=== PATIENT | male | born 1935 | race Caucasian/White ===

== ENCOUNTER → 2016-09-26 | Outpatient (REF) | payer MEDICARE ==
[~2016-09-26] MED LIST: ACET650S3 PR; ACET65TA OR; AMLO5TAB PO; ASPI1TAB PO; ASPI81TA83 PO; B COTAB3 PO; CARV12.5 PO; CARV3.12 PO; DULC10SU2 PR; ENEMENE6 PR; FLOM5CAP PO; LISI10TA4 PO; LOVA40TA PO; MILKSUS PO; MULTLIQ PO; OMEP20CA3 PO; PRIL20CA PO; SERO1TAB3 PO; SERT50TA PO; SIMV40TA2 PO; TOPR25TA OR; TYLE325T5 PO; VITA100037 PO; VITMTA PO; XARE10TA PO; cepacol PO
[2016-09-26 08:59] LABS: MEAN CORPUSCULAR HEMOGLOBIN 29.1 pg (27.0-33.0); MEAN CORPUSCULAR HGB CONC 32.4 g/dl (32.0-36.5); MEAN CORPUSCULAR VOLUME 89.7 fl (80.0-96.0); RED CELL DISTRIBUTION WIDTH 14.7 % (11.5-14.5); WHITE BLOOD COUNT 7.9 K/mm3 (4.0-10.0)
[2016-09-26 09:29] LABS: ANION GAP 8 MEQ/L (8-16); BLOOD UREA NITROGEN 21 MG/DL (7-18); CALCIUM LEVEL 8.7 MG/DL (8.8-10.2); CARBON DIOXIDE LEVEL 28 MEQ/L (21-32); CHLORIDE LEVEL 108 MEQ/L (98-107); CREATININE FOR GFR 0.93 MG/DL (0.70-1.30); GLOMERULAR FILTRATION RATE > 60.0 (>35); GLUCOSE, FASTING 150 MG/DL (83-110); SODIUM LEVEL 144 MEQ/L (136-145)
== END ==
LOC: SKLAB8 08:00
PROVIDERS: ATTEND Internal Medicine
DX: E78.5 Hyperlipidemia, unspecified (principal); I10 Essential (primary) hypertension

== ENCOUNTER 2016-10-21 08:31 | Inpatient (IN) | payer MEDICARE ==
[~2016-10-21] VITALS: Ht 182.9 cm; Wt 72.7 kg
[~2016-10-21 08:31] MED LIST changes: -ACET650S3 PR; -ASPI1TAB PO; -B COTAB3 PO; -CARV12.5 PO; -CARV3.12 PO; -DULC10SU2 PR; -ENEMENE6 PR; -FLOM5CAP PO; -LISI10TA4 PO; -LOVA40TA PO; -MILKSUS PO; -MULTLIQ PO; -OMEP20CA3 PO; -SERO1TAB3 PO; -SERT50TA PO; -TYLE325T5 PO; -VITA100037 PO; -VITMTA PO; -XARE10TA PO
[2016-10-21] MEDS ORDERED: NS 500 ML IV ONE (08:45)
[2016-10-21] MEDS ORDERED: LISI10TA4 PO (08:53)
[2016-10-21] MEDS ORDERED: SERO1TAB3 PO (08:53)
[2016-10-21] MEDS ORDERED: FLOM5CAP PO (08:53)
[2016-10-21] MEDS ORDERED: XARE10TA PO (08:53)
[2016-10-21] MEDS ORDERED: LOVA40TA PO (08:53)
[2016-10-21] MEDS ORDERED: SERT50TA PO (08:53)
[2016-10-21] MEDS ORDERED: CARV12.5 PO (08:53)
[2016-10-21] MEDS ORDERED: VITA100037 PO (08:56)
[2016-10-21] MEDS ORDERED: MULTLIQ PO (08:56)
[2016-10-21] MEDS ORDERED: ACET650S3 PR (08:56)
[2016-10-21] MEDS: QUEtiapine FUMARATE 25 MG TAB PO SCH ×2 (09:00→20:37)
[2016-10-21] MEDS: CARVedilol 6.25 MG TAB PO SCH ×2 (09:00→20:39)
--- NOTE | 2016-10-21 09:19 | REP ---
CHEST, SINGLE VIEW: COMPARISON: 06/12/2011. There is no evidence of acute infiltrate. No pleural effusion is seen. The heart is normal in size. The mediastinal silhouette is unremarkable. The visualized osseous structures are intact. IMPRESSION: No acute pulmonary disease. Signed by Michael Joyce MD 10/21/2016 05:10 P
[2016-10-21 09:28] LABS: BASO % 0.6 % (0.0-1.0); EOS # 0.4 K/mm3 (0.0-0.50); EOS % 5.7 % (0.0-3.0); LARGE UNSTAINED CELL # 0.1 K/mm3 (0.0-0.4); LARGE UNSTAINED CELL % 1.2 % (0.0-4.0); LYMPH # 0.8 K/mm3 (1.5-4.5); LYMPH % 11.8 % (24.0-44.0); MEAN CORPUSCULAR HEMOGLOBIN 29.1 pg (27.0-33.0); MEAN CORPUSCULAR HGB CONC 32.7 g/dl (32.0-36.5); MONO # 0.5 K/mm3 (0.0-0.8); MONO % 7.7 % (0.0-5.0); NEUTROPHILS # 4.6 K/mm3 (1.8-7.7); NEUTROPHILS % 72.9 % (36.0-66.0); PLATELET COUNT, AUTOMATED 185 k/mm3 (150-450); RED CELL DISTRIBUTION WIDTH 14.9 % (11.5-14.5); WHITE BLOOD COUNT 6.3 K/mm3 (4.0-10.0)
[2016-10-21 09:30] LABS: ALBUMIN/GLOBULIN RATIO 0.91 (1.00-1.93); ALKALINE PHOSPHATASE 127 U/L (45-117); ALT/SGPT 22 U/L (12-78); ANION GAP 7 MEQ/L (8-16); AST/SGOT 18 U/L (15-37); BILIRUBIN,DIRECT 0.1 MG/DL (0.0-0.2); BILIRUBIN,TOTAL 0.3 MG/DL (0.2-1.0); BLOOD UREA NITROGEN 29 MG/DL (7-18); CALCIUM LEVEL 9.2 MG/DL (8.8-10.2); CARBON DIOXIDE LEVEL 28 MEQ/L (21-32); CHLORIDE LEVEL 108 MEQ/L (98-107); CREATININE FOR GFR 1.29 MG/DL (0.70-1.30); GLOMERULAR FILTRATION RATE 56.8 (>35); GLUCOSE, FASTING 101 MG/DL (83-110); POTASSIUM SERUM 4.5 MEQ/L (3.5-5.1); SODIUM LEVEL 143 MEQ/L (136-145); TOTAL PROTEIN 6.3 GM/DL (6.4-8.2)
[2016-10-21 09:34] LABS: INR 1.5
--- NOTE | 2016-10-21 09:49 | REP ---
CT HEAD WITHOUT CONTRAST: HISTORY: Altered mental status. COMPARISON: 06/13/2011. Areas of decreased attenuation are present in the periventricular white matter. This represents small vessel ischemic disease. There is no intraparenchymal hemorrhage, mass or midline shift. The ventricular system and cortical sulci as well as subarachnoid space in the posterior fossa are dilated consistent with moderate volume loss. There is no extracerebral collection. The visualized sinuses are clear. IMPRESSION: 1. Small vessel ischemic disease. 2. Moderate volume loss. Signed by Toyb Pop MD 10/21/2016 09:50 A
[2016-10-21] MEDS ORDERED: DULC10SU2 PR (10:54)
[2016-10-21] MEDS ORDERED: OMEP20CA3 PO (10:54)
[2016-10-21] MEDS ORDERED: ENEMENE6 PR (10:54)
[2016-10-21] MEDS ORDERED: ASPI1TAB PO (10:55)
[2016-10-21] MEDS ORDERED: TYLE325T5 PO (10:55)
[2016-10-21] MEDS ORDERED: VITMTA PO (10:55)
[2016-10-21] MEDS ORDERED: MILKSUS PO (10:55)
[2016-10-21] MEDS ORDERED: B COTAB3 PO (10:55)
[2016-10-21] MEDS ORDERED: NS 1,000 ML IV SCH (12:24)
[2016-10-21] MEDS ORDERED: ACETAMINOPHEN TAB 650MG DOSE (2X325MG) PO PRN (12:30)
[2016-10-21] MEDS ORDERED: FLEET ENEMA PR PRN (12:30)
[2016-10-21] MEDS ORDERED: MOM 30ML SUSPENSION UDC PO PRN (12:30)
[2016-10-21] MEDS ORDERED: BISACODYL 10 MG SUPP PR PRN (12:30)
[2016-10-21] MEDS ORDERED: ACETAMINOPHEN 650 MG SUPP PR PRN (12:30)
--- NOTE | 2016-10-21 13:21 | HPE ---
DATE OF ADMISSION: 10/21/2016 PRIMARY CARE PROVIDER: Dr. Adorno CHIEF COMPLAINT: Syncope. HISTORY OF PRESENT ILLNESS: The patient is an 81-year-old man who presented from [facility] facility where he reportedly was found slumped over and drooling and unresponsive with a blood pressure in the 80s. He was taken back to his room and laid supine in his bed and improved rather quickly; however, had a repeat bout of blood pressure in the 80s and decreased level of responsiveness. As per the patient's , who is bedside in the emergency room, the patient had garbled speech yesterday and was not himself; however, at the present time, the patient's states that he is presently back to his baseline. His speech is at his baseline. The patient himself denies any pain. He is oriented to person and place but not to situation. The patient has baseline dementia and this is not any different from his baseline, as per the patient's and daughter, who are in the emergency room. PAST MEDICAL HISTORY: 1. Atrial fibrillation, followed by Dr. Alba. 2. Coronary artery disease. 3. Hypertension. 4. Dementia. 5. Dyslipidemia. 6. Gastroesophageal reflux disease (GERD). 7. Benign prostatic hypertrophy (BPH) with a history of prostate cancer. ALLERGIES: BEE VENOM. PAST SURGICAL HISTORY: 1. Left hemiarthroplasty on 09/18/2016. 2. Abdominal aortic aneurysm repair. 3. Appendectomy. SOCIAL HISTORY: He is a senior care resident. He is DO NOT RESUSCITATE. He is not a smoker. No alcohol or illicit drug use. His is healthcare proxy. FAMILY HISTORY: Noncontributory. REVIEW OF SYSTEMS: Negative other than for history of present illness. PHYSICAL EXAMINATION VITAL SIGNS: Temperature 97.2, pulse 59, respiratory rate 16, blood pressure 126/58, oxygen saturation 100% on room air. GENERAL: He is a very frail, elderly, male who appears older than his stated age. He is lying at a 32 degree angle on a stretcher. He is sleeping peacefully. He does not appear to be in any acute distress whatsoever. HEENT: Bitemporal wasting. His eyes are firmly closed shut. He has no teeth. He has very dry mucous membranes. No elevation in central venous pressure. CARDIOVASCULAR EXAMINATION: S1, S2. He is bradycardic without additional heart sounds appreciated. RESPIRATORY EXAMINATION: Fairly clear. ABDOMINAL EXAMINATION: Bowel sounds are present. The abdomen is soft. Nontender to palpation. EXTREMITIES: No clubbing, cyanosis or edema. LABORATORY DATA: WBC 6.3, hemoglobin 11.4, hematocrit 34.8, platelet count 185. Chemistry panel: Sodium 143, potassium 4.5, chloride 108, bicarbonate 28, BUN 29, creatinine 1.2, lactic acid 1.9, alkaline phosphatase slightly elevated at 127. One set of cardiac enzymes is negative. TSH within normal limits. INR is 1.5. UA is essentially unremarkable. MICROBIOLOGY: Blood cultures and urine cultures have been drawn. IMAGING: The patient did have a chest x-ray completed, which reveals no acute pulmonary disease. He also had a CT scan of the head, which revealed small vessel ischemic disease and moderate volume loss. ASSESSMENT AND PLAN: This is an 81-year-old man status post syncopal episode with some garbled speech yesterday. 1. Syncopal episode and garbled speech. At the present time, the patient appears to be dehydrated. He is on Lisinopril, as well as Coreg. He is bradycardic and in sinus sarah rhythm. I do have concern that he may be dehydrated secondary to advanced dementia and medication adverse effect, secondary to Lisinopril and carvedilol. At this time, I will gently hydrate him with normal saline. I will hold Lisinopril and decrease his Coreg and place holding parameters on it. I will request recent records from Dr. Alba's office, as well as a recent echocardiogram. He will be admitted to telemetry. We will trend his cardiac enzymes. We will continue to check neuro checks. Given that he did have garbled speech, there is also initial concern for CVA at the outside facility. I will check a MRI of the brain. We will also check orthostatics. Plan of care and all questions were discussed with the patient's family, who are at bedside, and all questions answered to their satisfaction. I did confirm code status. We will sign his Medical Orders for Life Sustaining Treatment (MOLST) form, which he did come to the hospital with for DO NOT RESUSCITATE. 2. Coronary artery disease. The patient is on aspirin, statin and beta lydia. We will obtain records from Dr. Alba's office. 3. Gastroesophageal reflux disease (GERD). Continue with omeprazole. 4. Depression. Continue with Seroquel and sertraline. 5. Atrial fibrillation. As outlined above, we will titrate down his Coreg and we will be monitoring him on telemetry. We will continue him on Xarelto. CT did not reveal any evidence of intracranial hemorrhage. 6. Benign prostatic hypertrophy (BPH). Continue with Flomax. 7. Hypertension. As outlined above. 8. Deep vein thrombosis (DVT) prophylaxis. The patient is on Xarelto. DISPOSITION: The patient is admitted to the progressive care unit (PCU). Physical therapy (PT) and occupational therapy (OT) will be consulted as he did have a syncopal episode.
[2016-10-21 16:57] VITALS: BP 145/72
[2016-10-21] MEDS: VITAMIN D 1,000 INTERNATIONAL UNITS TABLET PO SCH (17:46)
[2016-10-21] MEDS: ASPIRIN 81 MG ENTERIC TAB PO SCH (17:46)
[2016-10-21] MEDS: MULTIVITAMINS/MINERALS THERAP 1 TAB PO SCH (17:47)
[2016-10-21] MEDS: SERTRALINE HCL 50 MG TAB PO SCH (17:47)
[2016-10-21] MEDS ORDERED: SLF 3 ML SYR IV PRN (18:00)
--- NOTE | 2016-10-21 18:14 | ECGEPIP ---
Stationary ECG Study [facility] - ED Test Date: 2016-10-21 Pat Name: NHAN COULTER Department: Room: - Gender: M Media Sales Consultant: jodie : 1935 Requested By: Bella Cary Order Number: [id number] Reading MD: Bon Duque Measurements Intervals [place] Rate: 56 P: 38 OK: 209 QRS: -37 QRSD: 117 T: 1 QT: 438 QTc: 423 Interpretive Statements SINUS BRADYCARDIA LEFT AXIS DEVIATION LOW QRS VOLTAGE MODERATE INTRAVENTRICULAR CONDUCTION DELAY Electronically Signed On 10-21-2016 18:14:03 EDT by Bon Duque
[2016-10-21 19:37] VITALS: BP 160/80
[2016-10-21] MEDS: SIMVASTATIN 40 MG TAB PO SCH (20:36)
[2016-10-21] MEDS: OMEPRAZOLE 20 MG CAP PO SCH (20:36)
[2016-10-21] MEDS: RIVAROXABAN 10 MG TAB (XARELTO) PO SCH (20:37)
[2016-10-21] MEDS: TAMSULOSIN 0.4 MG CAP PO SCH (20:40)
[2016-10-21] MEDS: SLF 3 ML SYR IV SCH (22:00)
[2016-10-22] VITALS (9 sets, daily range): BP systolic 85–138; BP diastolic 56–78
[2016-10-22 05:11] LABS: MEAN CORPUSCULAR HEMOGLOBIN 29.3 pg (27.0-33.0); MEAN CORPUSCULAR HGB CONC 32.9 g/dl (32.0-36.5); MEAN CORPUSCULAR VOLUME 89.1 fl (80.0-96.0); RED CELL DISTRIBUTION WIDTH 14.8 % (11.5-14.5); WHITE BLOOD COUNT 6.5 K/mm3 (4.0-10.0)
[2016-10-22 05:34] LABS: ANION GAP 6 MEQ/L (8-16); BLOOD UREA NITROGEN 25 MG/DL (7-18); CALCIUM LEVEL 8.6 MG/DL (8.8-10.2); CARBON DIOXIDE LEVEL 29 MEQ/L (21-32); CHLORIDE LEVEL 107 MEQ/L (98-107); CREATININE FOR GFR 1.13 MG/DL (0.70-1.30); GLOMERULAR FILTRATION RATE > 60.0 (>35); GLUCOSE, FASTING 102 MG/DL (83-110); POTASSIUM SERUM 3.8 MEQ/L (3.5-5.1); SODIUM LEVEL 142 MEQ/L (136-145)
[2016-10-22] MEDS: SLF 3 ML SYR IV SCH ×3 (05:47→21:50)
[2016-10-22] MEDS: QUEtiapine FUMARATE 25 MG TAB PO SCH ×2 (08:55→21:50)
[2016-10-22] MEDS: MULTIVITAMINS/MINERALS THERAP 1 TAB PO SCH (08:55)
[2016-10-22] MEDS: SERTRALINE HCL 50 MG TAB PO SCH (08:55)
[2016-10-22] MEDS: ASPIRIN 81 MG ENTERIC TAB PO SCH (08:55)
[2016-10-22] MEDS: VITAMIN D 1,000 INTERNATIONAL UNITS TABLET PO SCH (08:55)
[2016-10-22] MEDS: CARVedilol 6.25 MG TAB PO SCH (09:00)
[2016-10-22] MEDS ORDERED: NS 1,000 ML IV SCH (12:45)
--- NOTE | 2016-10-22 14:55 | IPN ---
DATE: 10/22/2016 SUBJECTIVE: Today, the patient reports that he is feeling better. He does not remember the events of yesterday. He denies any chest pain, shortness of breath, fevers, chills, nausea, or vomiting at this time. The patient's and daughter are at bedside and they report that he is doing significantly better than he was yesterday. He is more awake, more alert and conversant. OBJECTIVE: VITAL SIGNS: Temperature 98.5, pulse 73, respiratory rate 20, blood pressure 126/57, oxygen saturation 97% on room air. Orthostatics were checked and while laying supine, he was 115/56 with a pulse of 75 and while standing, he was 85/58 with a pulse of 67. GENERAL: He is a frail, elderly, man sitting up in bed, watching television in no distress. NEUROLOGIC: Cranial nerves II-XII are grossly intact. HEENT: He still has dry mucous membranes. No elevation of central venous pressure (CVP). CARDIOVASCULAR: S1, S2. He is not bradycardic. RESPIRATORY: Fairly clear. ABDOMEN: Bowel sounds are present. The abdomen is soft. EXTREMITIES: No clubbing, cyanosis, or edema. LABORATORY STUDIES: WBC 6.5, hemoglobin 10.6, hematocrit 32.2, platelet count 181. Chemistry panel: Sodium 142, potassium 3.8, chloride 107, bicarbonate 29, BUN 25, creatinine 1.1. Three sets of cardiac enzymes are negative. MICROBIOLOGY: Blood cultures are negative after 24 hours. Urine culture is negative. IMAGING STUDIES: The patient had an MRI of the brain which we are currently waiting for the results. ASSESSMENT AND PLAN: This is an 81-year-old man status post a syncopal episode. PROBLEM LIST: 1. Syncopal episode, likely secondary to dehydration and medication adverse effect. The patient had been on lisinopril and Coreg. He was in a sinus bradycardia when he presented and he was orthostatic. At this time, we have discontinued his lisinopril and cut his Coreg by 75% and placed holding parameters on it. We are providing him with normal saline. He does appear to be improving quite well. I am less concerned for a cerebrovascular accident (CVA). We are awaiting the results of his MRI. I suspect he will be able to return back to his [facility] facility as early as tomorrow. He is a DO NOT RESUSCITATE (DNR). 2. Coronary artery disease. He is on aspirin, statin, and beta lydia. 3. Gastroesophageal reflux disease. He is on omeprazole. 4. Depression. He is on Seroquel and sertraline. 5. Atrial fibrillation. He is rate controlled with Coreg. He is anticoagulated with Xarelto. 6. Benign prostatic hypertrophy (BPH). He is on Flomax. 7. Hypertension, as outlined above. 8. Deep vein thrombosis (DVT) prophylaxis. He is on Xarelto. DISPOSITION: Provided he remains stable and is no longer orthostatic, he can likely return back to his [facility] facility as early as tomorrow.
[2016-10-22] MEDS: RIVAROXABAN 10 MG TAB (XARELTO) PO SCH (18:45)
[2016-10-22] MEDS: TAMSULOSIN 0.4 MG CAP PO SCH (21:50)
[2016-10-22] MEDS: OMEPRAZOLE 20 MG CAP PO SCH (21:50)
[2016-10-22] MEDS: CARVedilol 3.125 MG TAB PO SCH (21:50)
[2016-10-22] MEDS: SIMVASTATIN 40 MG TAB PO SCH (21:50)
[2016-10-23] VITALS: BP 150/67
[2016-10-23 04:00] VITALS: BP 143/74
[2016-10-23 05:37] LABS: MEAN CORPUSCULAR HEMOGLOBIN 29.6 pg (27.0-33.0); MEAN CORPUSCULAR HGB CONC 32.8 g/dl (32.0-36.5); RED CELL DISTRIBUTION WIDTH 14.8 % (11.5-14.5); WHITE BLOOD COUNT 6.7 K/mm3 (4.0-10.0)
[2016-10-23] MEDS: SLF 3 ML SYR IV SCH (05:51)
[2016-10-23 05:59] LABS: ANION GAP 5 MEQ/L (8-16); BLOOD UREA NITROGEN 23 MG/DL (7-18); CARBON DIOXIDE LEVEL 28 MEQ/L (21-32); CHLORIDE LEVEL 108 MEQ/L (98-107); CREATININE FOR GFR 1.05 MG/DL (0.70-1.30); GLOMERULAR FILTRATION RATE > 60.0 (>35); GLUCOSE, FASTING 101 MG/DL (83-110); POTASSIUM SERUM 4.4 MEQ/L (3.5-5.1); SODIUM LEVEL 141 MEQ/L (136-145)
[2016-10-23 08:00] VITALS: BP 142/72
[2016-10-23] MEDS ORDERED: CARV3.12 PO (08:23)
[2016-10-23 09:24] VITALS: BP 110/64
[2016-10-23] MEDS: SERTRALINE HCL 50 MG TAB PO SCH (09:24)
[2016-10-23] MEDS: MULTIVITAMINS/MINERALS THERAP 1 TAB PO SCH (09:24)
[2016-10-23] MEDS: ASPIRIN 81 MG ENTERIC TAB PO SCH (09:24)
[2016-10-23] MEDS: CARVedilol 3.125 MG TAB PO SCH (09:24)
[2016-10-23] MEDS: QUEtiapine FUMARATE 25 MG TAB PO SCH (09:24)
[2016-10-23] MEDS: VITAMIN D 1,000 INTERNATIONAL UNITS TABLET PO SCH (09:24)
--- NOTE | 2016-10-23 13:38 | REP ---
MR BRAIN WITHOUT CONTRAST: HISTORY: Syncope. COMPARISON: CT 10/21/2016. Areas of decreased attenuation are present in the periventricular and subcortical white matter. This represents small vessel ischemic disease. There is no intraparenchymal hemorrhage, infarct, mass, or midline shift. The ventricular system and cortical sulci as well as subarachnoid space in the posterior fossa are dilated consistent with moderate volume loss. There is no extracerebral collection. The sinuses are clear. IMPRESSION: 1. Small vessel ischemic disease. 2. Moderate volume loss. Signed by Toby Pop MD 10/23/2016 01:39 P
--- NOTE | 2016-10-24 20:56 | DSES ---
DATE OF ADMISSION: 10/21/2016 DATE OF DISCHARGE: 10/23/2016 DISCHARGE DIAGNOSIS: Orthostatic hypotension. SECONDARY DIAGNOSES: 1. Medication adverse effect. 2. Dehydration. 3. Coronary artery disease. 4. Gastroesophageal reflux disease. 5. Depression. 6. Atrial fibrillation. 7. Benign prostatic hypertrophy (BPH). 8. Hypertension. 9. Dementia 10. Atrial fibrillation. HOSPITAL COURSE: The patient is an 81-year-old man who lives in a nursing home facility. He is a DO NOT RESUSCITATE with dementia, who had reportedly not been himself. [facility] and was [facility] to the emergency room for evaluation. He was found to be hypotensive, orthostatic, bradycardiac and dehydrated. He was admitted to the intensive care unit. His antihypertensives were titrated down. He was provided with normal saline. Symptoms did gradually improve and resolve to the point that he was back to his baseline as per his family. SUBJECTIVE: The patient denies any complaints. OBJECTIVE: VITAL SIGNS: Temperature 98.6, pulse 68, respiratory rate 18, blood pressure (BP) 142/72, oxygen saturation 98% on room air. GENERAL: He is a frail, elderly man sitting up in bed. He is easily arousable to verbal stimuli. He is in no distress. HEENT: Cranial nerves II/XII are grossly intact. He has moist mucous membranes. No elevation of central venous pressure (CVP) . CARDIOVASCULAR: S1, S2. Irregularly irregular. RESPIRATORY EXAM: Clear. ABDOMINAL EXAM: Benign. EXTREMITIES: No clubbing, cyanosis or edema. LABORATORY STUDIES: White blood count (WBC) is 6.7, hemoglobin 11.1, platelet count 197. Chemistry panel: Sodium 141, potassium 4.4, chloride 108, bicarbonate 28, BUN 23, creatine 1.0. Three sets of cardiac enzymes are negative. Microbiology and blood cultures were negative. IMAGING: The patient did have Magnetic Resonance Imaging (MRI) of the brain, did not reveal any gross abnormalities. ASSESSMENT AND PLAN: This is an 81-year-old man status post syncopal episodes secondary to orthostatic hypotension. PROBLEMS: 1. Syncopal episode secondary to orthostatic hypotension. Magnetic Resonance Imaging (MRI) was not revealing for gross abnormality. Report is currently pending. The patient's symptoms have resolved. We have discontinued his lisinopril and cut his Coreg by 75% and place holding parameters on it. He did receive normal saline and he appears to be back at his baseline. I am less concern for a cerebrovascular accident (CVA). He is able to return to nursing home today. 2. Coronary artery disease. He is on aspirin, statin and a beta lydia. 3. Gastroesophageal reflux disease. He is on omeprazole. 4. Depression. He is Seroquel and sertraline. 5. Atrial fibrillation. He is rate controlled with Coreg and anticoagulated with Xarelto. 6. Benign prostatic hypertrophy (BPH). He is on Flomax. 7. Hypertension. 8. Deep vein thrombosis (DVT) prophylaxis. He is on Xarelto. DISPOSITION: The patient is returning to his nursing home facility at [facility]. He is to followup with his primary care physician within seven days, along with his 911 telecommunicator within two weeks. Activity and diet as prior to admission. He is to return to the office if symptoms worsen. MEDICATIONS AT THE TIME OF DISCHARGE: - Coreg 3.125 mg by mouth twice a day - acetaminophen 650 mg every 4 hours as needed for pain or fever - aspirin 81 mg daily - vitamin B complex one tablet daily - Dulcolax 10 mg daily as needed for constipation - enema daily as needed for constipation. - lovastatin 40 mg at bedtime (q.h.s.) - milk of magnesia 30 mL daily as needed for constipation - multivitamin one tablet daily - omeprazole 20 mg every evening - Seroquel 25 mg twice a day - Xarelto 10 mg every evening - sertraline 50 mg daily - Flomax 0.4 mg every evening - vitamin D 1000 units daily Greater than 30 minutes organizing disposition.
== END 2016-10-23 11:06 | DRG 641 ==
LOC: M ED 09:11 → M ED INP 12:24 → M PCU 16:42
PROVIDERS: ADMIT Internal Medicine; ATTEND Internal Medicine
DX: E86.0 Dehydration (principal); I48.91 Unspecified atrial fibrillation; I95.1 Orthostatic hypotension; I25.10 Atherosclerotic heart disease of native coronary artery without angina pectoris; I10 Essential (primary) hypertension; F03.90 Unspecified dementia, unspecified severity, without behavioral disturbance, psychotic disturbance, mood disturbance, and anxiety; E78.5 Hyperlipidemia, unspecified; K21.9 Gastro-esophageal reflux disease without esophagitis; N40.0 Benign prostatic hyperplasia without lower urinary tract symptoms; Z85.46 Personal history of malignant neoplasm of prostate; Z66 Do not resuscitate; T46.5X5A Adverse effect of other antihypertensive drugs, initial encounter; T44.6X5A Adverse effect of alpha-adrenoreceptor antagonists, initial encounter; F32.9 Major depressive disorder, single episode, unspecified; Z79.01 Long term (current) use of anticoagulants; Z79.82 Long term (current) use of aspirin; Z79.899 Other long term (current) drug therapy

== ENCOUNTER → 2016-10-24 | Outpatient (REF) | payer MEDICARE ==
[~2016-10-24] MED LIST changes: +ACET650S3 PR; +ASPI1TAB PO; +B COTAB3 PO; +CARV12.5 PO; +CARV3.12 PO; +DULC10SU2 PR; +ENEMENE6 PR; +FLOM5CAP PO; +LISI10TA4 PO; +LOVA40TA PO; +MILKSUS PO; +MULTLIQ PO; +OMEP20CA3 PO; +SERO1TAB3 PO; +SERT50TA PO; +TYLE325T5 PO; +VITA100067 PO; +VITMTA PO; +XARE10TA PO
[2016-10-24 10:31] LABS: MEAN CORPUSCULAR HEMOGLOBIN 28.6 pg (27.0-33.0); MEAN CORPUSCULAR HGB CONC 31.6 g/dl (32.0-36.5); MEAN CORPUSCULAR VOLUME 90.4 fl (80.0-96.0); RED CELL DISTRIBUTION WIDTH 14.7 % (11.5-14.5); WHITE BLOOD COUNT 7.3 K/mm3 (4.0-10.0)
[2016-10-24 10:34] LABS: ANION GAP 9 MEQ/L (8-16); BLOOD UREA NITROGEN 19 MG/DL (7-18); CALCIUM LEVEL 9.6 MG/DL (8.8-10.2); CARBON DIOXIDE LEVEL 23 MEQ/L (21-32); CHLORIDE LEVEL 107 MEQ/L (98-107); CREATININE FOR GFR 1.11 MG/DL (0.70-1.30); GLOMERULAR FILTRATION RATE > 60.0 (>35); GLUCOSE, FASTING 137 MG/DL (83-110); POTASSIUM SERUM 4.1 MEQ/L (3.5-5.1); SODIUM LEVEL 139 MEQ/L (136-145)
== END ==
LOC: SKLAB8 07:00
PROVIDERS: ATTEND Internal Medicine
DX: I10 Essential (primary) hypertension (principal)

== ENCOUNTER → 2016-11-04 | Outpatient (REF) | payer MEDICARE ==
[2016-11-04 09:44] LABS: MEAN CORPUSCULAR HEMOGLOBIN 28.6 pg (27.0-33.0); MEAN CORPUSCULAR HGB CONC 31.6 g/dl (32.0-36.5); MEAN CORPUSCULAR VOLUME 90.6 fl (80.0-96.0); RED CELL DISTRIBUTION WIDTH 14.9 % (11.5-14.5); WHITE BLOOD COUNT 8.5 K/mm3 (4.0-10.0)
[2016-11-04 09:46] LABS: ANION GAP 8 MEQ/L (8-16); BLOOD UREA NITROGEN 18 MG/DL (7-18); CALCIUM LEVEL 9.2 MG/DL (8.8-10.2); CARBON DIOXIDE LEVEL 27 MEQ/L (21-32); CHLORIDE LEVEL 108 MEQ/L (98-107); CREATININE FOR GFR 1.11 MG/DL (0.70-1.30); GLOMERULAR FILTRATION RATE > 60.0 (>35); GLUCOSE, FASTING 148 MG/DL (83-110); POTASSIUM SERUM 3.8 MEQ/L (3.5-5.1); SODIUM LEVEL 143 MEQ/L (136-145)
== END ==
LOC: SKLAB8 08:00
PROVIDERS: ATTEND Internal Medicine
DX: Z51.81 Encounter for therapeutic drug level monitoring (principal); Z79.01 Long term (current) use of anticoagulants; I10 Essential (primary) hypertension

== ENCOUNTER → 2016-12-16 | Outpatient (REF) | payer MEDICARE ==
[2016-12-16 08:39] LABS: BASO % 0.5 % (0.0-1.0); EOS # 0.3 K/mm3 (0.0-0.50); LARGE UNSTAINED CELL # 0.1 K/mm3 (0.0-0.4); LARGE UNSTAINED CELL % 1.9 % (0.0-4.0); LYMPH # 0.8 K/mm3 (1.5-4.5); LYMPH % 12.7 % (24.0-44.0); MEAN CORPUSCULAR HEMOGLOBIN 27.8 pg (27.0-33.0); MEAN CORPUSCULAR HGB CONC 32.3 g/dl (32.0-36.5); MEAN CORPUSCULAR VOLUME 86.1 fl (80.0-96.0); MONO # 0.4 K/mm3 (0.0-0.8); MONO % 6.5 % (0.0-5.0); NEUTROPHILS % 72.5 % (36.0-66.0); PLATELET COUNT, AUTOMATED 229 k/mm3 (150-450); RED CELL DISTRIBUTION WIDTH 14.9 % (11.5-14.5); WHITE BLOOD COUNT 5.6 K/mm3 (4.0-10.0)
[2016-12-16 09:14] LABS: ANION GAP 11 MEQ/L (8-16); BLOOD UREA NITROGEN 18 MG/DL (7-18); CARBON DIOXIDE LEVEL 27 MEQ/L (21-32); CHLORIDE LEVEL 107 MEQ/L (98-107); CREATININE FOR GFR 1.18 MG/DL (0.70-1.30); GLOMERULAR FILTRATION RATE > 60.0 (>35); GLUCOSE, FASTING 149 MG/DL (83-110); SODIUM LEVEL 145 MEQ/L (136-145)
== END ==
LOC: SKLAB8 07:00
PROVIDERS: ATTEND Internal Medicine
DX: F03.91 Unspecified dementia, unspecified severity, with behavioral disturbance (principal)

== ENCOUNTER → 2016-12-26 | Outpatient (REF) | payer MEDICARE ==
[2016-12-26 09:30] LABS: ANION GAP 11 MEQ/L (8-16); BLOOD UREA NITROGEN 22 MG/DL (7-18); CALCIUM LEVEL 9.3 MG/DL (8.8-10.2); CARBON DIOXIDE LEVEL 27 MEQ/L (21-32); CHLORIDE LEVEL 108 MEQ/L (98-107); CREATININE FOR GFR 1.08 MG/DL (0.70-1.30); GLOMERULAR FILTRATION RATE > 60.0 (>35); GLUCOSE, FASTING 103 MG/DL (83-110); POTASSIUM SERUM 4.4 MEQ/L (3.5-5.1); SODIUM LEVEL 146 MEQ/L (136-145)
[2016-12-26 09:36] LABS: MEAN CORPUSCULAR HEMOGLOBIN 27.7 pg (27.0-33.0); MEAN CORPUSCULAR HGB CONC 32.2 g/dl (32.0-36.5); MEAN CORPUSCULAR VOLUME 86.1 fl (80.0-96.0); RED CELL DISTRIBUTION WIDTH 14.9 % (11.5-14.5); WHITE BLOOD COUNT 6.4 K/mm3 (4.0-10.0)
== END ==
LOC: SKLAB8 07:00
PROVIDERS: ATTEND Internal Medicine
DX: Z51.81 Encounter for therapeutic drug level monitoring (principal); Z79.01 Long term (current) use of anticoagulants; I10 Essential (primary) hypertension

== ENCOUNTER → 2017-01-20 | Outpatient (REF) | payer MEDICARE ==
[2017-01-20 09:09] LABS: MEAN CORPUSCULAR HEMOGLOBIN 27.7 pg (27.0-33.0); MEAN CORPUSCULAR HGB CONC 32.2 g/dl (32.0-36.5); RED CELL DISTRIBUTION WIDTH 15.3 % (11.5-14.5); WHITE BLOOD COUNT 6.2 K/mm3 (4.0-10.0)
[2017-01-20 09:44] LABS: ANION GAP 9 MEQ/L (8-16); BLOOD UREA NITROGEN 21 MG/DL (7-18); CALCIUM LEVEL 9.3 MG/DL (8.8-10.2); CARBON DIOXIDE LEVEL 28 MEQ/L (21-32); CHLORIDE LEVEL 106 MEQ/L (98-107); CREATININE FOR GFR 1.11 MG/DL (0.70-1.30); GLOMERULAR FILTRATION RATE > 60.0 (>35); GLUCOSE, FASTING 139 MG/DL (83-110); POTASSIUM SERUM 4.1 MEQ/L (3.5-5.1); SODIUM LEVEL 143 MEQ/L (136-145)
== END ==
LOC: SKLAB8 08:00
PROVIDERS: ATTEND Nurse Practitioner Adult Health
DX: Z51.81 Encounter for therapeutic drug level monitoring (principal); Z79.01 Long term (current) use of anticoagulants; I10 Essential (primary) hypertension

== ENCOUNTER → 2017-01-30 | Outpatient (REF) | payer MEDICARE ==
[2017-01-30 09:26] LABS: MEAN CORPUSCULAR HEMOGLOBIN 28.2 pg (27.0-33.0); MEAN CORPUSCULAR HGB CONC 33.1 g/dl (32.0-36.5); MEAN CORPUSCULAR VOLUME 85.1 fl (80.0-96.0); RED CELL DISTRIBUTION WIDTH 15.4 % (11.5-14.5); WHITE BLOOD COUNT 7.5 K/mm3 (4.0-10.0)
[2017-01-30 09:29] LABS: ANION GAP 8 MEQ/L (8-16); BLOOD UREA NITROGEN 19 MG/DL (7-18); CALCIUM LEVEL 9.5 MG/DL (8.8-10.2); CARBON DIOXIDE LEVEL 29 MEQ/L (21-32); CHLORIDE LEVEL 108 MEQ/L (98-107); CREATININE FOR GFR 1.08 MG/DL (0.70-1.30); GLOMERULAR FILTRATION RATE > 60.0 (>35); GLUCOSE, FASTING 128 MG/DL (83-110); POTASSIUM SERUM 4.2 MEQ/L (3.5-5.1); SODIUM LEVEL 145 MEQ/L (136-145)
== END ==
LOC: SKLAB8 07:00
PROVIDERS: ATTEND Internal Medicine
DX: I48.91 Unspecified atrial fibrillation (principal); Z79.01 Long term (current) use of anticoagulants; F03.90 Unspecified dementia, unspecified severity, without behavioral disturbance, psychotic disturbance, mood disturbance, and anxiety; E11.9 Type 2 diabetes mellitus without complications

== ENCOUNTER → 2017-02-27 | Outpatient (REF) | payer MEDICARE ==
[2017-02-27 09:30] LABS: MEAN CORPUSCULAR HEMOGLOBIN 26.6 pg (27.0-33.0); MEAN CORPUSCULAR HGB CONC 31.2 g/dl (32.0-36.5); MEAN CORPUSCULAR VOLUME 85.5 fl (80.0-96.0); RED CELL DISTRIBUTION WIDTH 16.4 % (11.5-14.5); WHITE BLOOD COUNT 7.4 10^3/uL (4.0-10.0)
[2017-02-27 10:04] LABS: ANION GAP 7 MEQ/L (8-16); BLOOD UREA NITROGEN 17 MG/DL (7-18); CALCIUM LEVEL 9.3 MG/DL (8.8-10.2); CARBON DIOXIDE LEVEL 29 MEQ/L (21-32); CHLORIDE LEVEL 106 MEQ/L (98-107); CREATININE FOR GFR 1.02 MG/DL (0.70-1.30); GLOMERULAR FILTRATION RATE > 60.0 (>35); GLUCOSE, FASTING 105 MG/DL (83-110); POTASSIUM SERUM 4.2 MEQ/L (3.5-5.1); SODIUM LEVEL 142 MEQ/L (136-145)
== END ==
LOC: SKLAB8 02-28 07:00
PROVIDERS: ATTEND Internal Medicine
DX: I48.91 Unspecified atrial fibrillation (principal); Z79.01 Long term (current) use of anticoagulants; F03.90 Unspecified dementia, unspecified severity, without behavioral disturbance, psychotic disturbance, mood disturbance, and anxiety; E11.9 Type 2 diabetes mellitus without complications

== ENCOUNTER → 2017-03-27 | Outpatient (REF) | payer MEDICARE ==
[2017-03-27 08:53] LABS: MEAN CORPUSCULAR HEMOGLOBIN 27.1 pg (27.0-33.0); MEAN CORPUSCULAR HGB CONC 31.4 g/dl (32.0-36.5); MEAN CORPUSCULAR VOLUME 86.1 fl (80.0-96.0); PLATELET COUNT, AUTOMATED 283 10^3/uL (150-450); RED CELL DISTRIBUTION WIDTH 16.1 % (11.5-14.5); WHITE BLOOD COUNT 9.3 10^3/uL (4.0-10.0)
[2017-03-27 09:41] LABS: ANION GAP 9 MEQ/L (8-16); BLOOD UREA NITROGEN 20 MG/DL (7-18); CALCIUM LEVEL 9.4 MG/DL (8.8-10.2); CARBON DIOXIDE LEVEL 28 MEQ/L (21-32); CHLORIDE LEVEL 105 MEQ/L (98-107); CREATININE FOR GFR 1.09 MG/DL (0.70-1.30); GLOMERULAR FILTRATION RATE > 60.0 (>35); GLUCOSE, FASTING 94 MG/DL (83-110); POTASSIUM SERUM 4.2 MEQ/L (3.5-5.1); SODIUM LEVEL 142 MEQ/L (136-145)
== END ==
LOC: SKLAB8 07:00
PROVIDERS: ATTEND Internal Medicine
DX: D64.9 Anemia, unspecified (principal); E87.0 Hyperosmolality and hypernatremia

== ENCOUNTER → 2017-05-01 | Outpatient (REF) | payer MEDICARE ==
[2017-05-01 09:31] LABS: MEAN CORPUSCULAR HEMOGLOBIN 27.3 pg (27.0-33.0); MEAN CORPUSCULAR HGB CONC 31.6 g/dl (32.0-36.5); MEAN CORPUSCULAR VOLUME 86.3 fl (80.0-96.0); PLATELET COUNT, AUTOMATED 252 10^3/uL (150-450); RED CELL DISTRIBUTION WIDTH 16.1 % (11.5-14.5); WHITE BLOOD COUNT 7.6 10^3/uL (4.0-10.0)
== END ==
LOC: SKLAB8 07:00
PROVIDERS: ATTEND Internal Medicine
DX: E11.9 Type 2 diabetes mellitus without complications (principal)

== ENCOUNTER → 2017-06-26 | Outpatient (REF) | payer MEDICARE ==
[2017-06-26 09:18] LABS: HEMATOCRIT 38.5 % (42.0-52.0); HEMOGLOBIN 12.1 g/dl (14.0-18.0); MEAN CORPUSCULAR HEMOGLOBIN 27.6 pg (27.0-33.0); MEAN CORPUSCULAR HGB CONC 31.4 g/dl (32.0-36.5); MEAN CORPUSCULAR VOLUME 87.9 fl (80.0-96.0); PLATELET COUNT, AUTOMATED 204 10^3/uL (150-450); RED BLOOD COUNT 4.38 10^6/uL (4.30-6.10); RED CELL DISTRIBUTION WIDTH 15.3 % (11.5-14.5); WHITE BLOOD COUNT 6.5 10^3/uL (4.0-10.0)
[2017-06-26 09:55] LABS: ANION GAP 8 MEQ/L (8-16); BLOOD UREA NITROGEN 19 MG/DL (7-18); CALCIUM LEVEL 9.1 MG/DL (8.8-10.2); CARBON DIOXIDE LEVEL 29 MEQ/L (21-32); CHLORIDE LEVEL 108 MEQ/L (98-107); CREATININE FOR GFR 0.99 MG/DL (0.70-1.30); GLOMERULAR FILTRATION RATE > 60.0 (>35); GLUCOSE, FASTING 96 MG/DL (70-100); POTASSIUM SERUM 4.1 MEQ/L (3.5-5.1); SODIUM LEVEL 145 MEQ/L (136-145)
== END ==
LOC: SKLAB8 07:00
DX: I48.91 Unspecified atrial fibrillation (principal)
CPT/HCPCS: 36415

== ENCOUNTER 2017-08-06 21:16 | Emergency (ER) | payer MEDICARE | END 2017-08-07 00:54 | disposition home or self-care (01) | LOC: M ED 08-07 00:54 | DX: Z04.3 Encounter for examination and observation following other accident (principal); W19.XXXA Unspecified fall, initial encounter; Y92.129 Unspecified place in nursing home as the place of occurrence of the external cause; Y93.9 Activity, unspecified; I48.91 Unspecified atrial fibrillation; I10 Essential (primary) hypertension; Z79.82 Long term (current) use of aspirin; Z79.899 Other long term (current) drug therapy; Z91.030 Bee allergy status | CPT/HCPCS: 70450 ==

== ENCOUNTER → 2017-08-25 | Outpatient (REF) | payer MEDICARE ==
[2017-09-04 09:31] LABS: HEMATOCRIT 39.7 % (42.0-52.0); HEMOGLOBIN 12.7 g/dl (13.5-17.5); MEAN CORPUSCULAR HEMOGLOBIN 27.9 pg (27.0-33.0); MEAN CORPUSCULAR VOLUME 87.1 fl (80.0-96.0); PLATELET COUNT, AUTOMATED 172 10^3/uL (150-450); RED BLOOD COUNT 4.56 10^6/uL (4.30-6.10); RED CELL DISTRIBUTION WIDTH 15.3 % (11.5-14.5); WHITE BLOOD COUNT 7.6 10^3/uL (4.0-10.0)
[2017-09-04 09:45] LABS: ALBUMIN 3.2 GM/DL (3.2-5.2); ALBUMIN/GLOBULIN RATIO 0.94 (1.00-1.93); ALKALINE PHOSPHATASE 95 U/L (45-117); ALT/SGPT 20 U/L (12-78); ANION GAP 5 MEQ/L (8-16); AST/SGOT 20 U/L (7-37); BILIRUBIN,TOTAL 0.4 MG/DL (0.2-1.0); BLOOD UREA NITROGEN 15 MG/DL (7-18); CALCIUM LEVEL 8.6 MG/DL (8.8-10.2); CARBON DIOXIDE LEVEL 28 MEQ/L (21-32); CHLORIDE LEVEL 110 MEQ/L (98-107); CREATININE FOR GFR 1.05 MG/DL (0.70-1.30); GLOMERULAR FILTRATION RATE > 60.0 (>35); GLUCOSE, FASTING 99 MG/DL (70-100); POTASSIUM SERUM 4.1 MEQ/L (3.5-5.1); SODIUM LEVEL 143 MEQ/L (136-145); TOTAL PROTEIN 6.6 GM/DL (6.4-8.2); VALPROIC ACID (DEPAKOTE) 9.2 UG/ML (50.0-100.0)
[2017-09-04 10:09] LABS: APPEARANCE, URINE HAZY (CLEAR); BACTERIA, URINE AUTO NEGATIVE (NEGATIVE); BILIRUBIN, URINE AUTO NEGATIVE (NEGATIVE); BLOOD, URINE BLOOD NEGATIVE (NEGATIVE); COLOR, URINE YELLOW (YELLOW); GLUCOSE, URINE (UA) AUTO NEGATIVE (NEGATIVE); KETONE, URINE AUTO NEGATIVE (NEGATIVE); LEUKOCYTE ESTERASE, URINE AUTO NEGATIVE (NEGATIVE); MUCUS, URINE SMALL (NEGATIVE); NITRITE, URINE AUTO NEGATIVE (NEGATIVE); PROTEIN, URINE AUTO NEGATIVE (NEGATIVE); RBC, URINE AUTO 4 /HPF (0-3); SPECIFIC GRAVITY URINE AUTO 1.016 (1.002-1.035); SQUAMOUS EPITHELIAL CELL UR AU 0 /HPF (0-6); UROBILINOGEN, URINE AUTO 0.2 mg/dL (0.0-2.0); WBC, URINE AUTO 1 /HPF (0-3)
[2017-09-05 14:21] LABS: TROPONIN I < 0.02 NG/ML (< 0.10)
== END ==
LOC: SKLAB8 07:00
DX: I95.1 Orthostatic hypotension (principal); I48.91 Unspecified atrial fibrillation; I10 Essential (primary) hypertension; Z79.899 Other long term (current) drug therapy
CPT/HCPCS: 93005

== ENCOUNTER → 2017-09-04 | Outpatient (CLI) | payer MEDICARE | LOC: M EKG 10:09 | DX: R53.81 Other malaise (principal); R41.82 Altered mental status, unspecified | CPT/HCPCS: 70450 ==

== ENCOUNTER → 2017-09-25 | Outpatient (REF) | payer MEDICARE ==
[2017-09-25 10:26] LABS: HEMATOCRIT 41.5 % (42.0-52.0); HEMOGLOBIN 13.5 g/dl (13.5-17.5); MEAN CORPUSCULAR HEMOGLOBIN 27.8 pg (27.0-33.0); MEAN CORPUSCULAR HGB CONC 32.5 g/dl (32.0-36.5); MEAN CORPUSCULAR VOLUME 85.6 fl (80.0-96.0); PLATELET COUNT, AUTOMATED 230 10^3/uL (150-450); RED BLOOD COUNT 4.85 10^6/uL (4.30-6.10); RED CELL DISTRIBUTION WIDTH 15.5 % (11.5-14.5); WHITE BLOOD COUNT 6.7 10^3/uL (4.0-10.0)
[2017-09-25 10:57] LABS: ANION GAP 7 MEQ/L (8-16); BLOOD UREA NITROGEN 16 MG/DL (7-18); CALCIUM LEVEL 9.5 MG/DL (8.8-10.2); CARBON DIOXIDE LEVEL 28 MEQ/L (21-32); CHLORIDE LEVEL 109 MEQ/L (98-107); CREATININE FOR GFR 1.05 MG/DL (0.70-1.30); GLOMERULAR FILTRATION RATE > 60.0 (>35); GLUCOSE, FASTING 110 MG/DL (70-100); POTASSIUM SERUM 4.3 MEQ/L (3.5-5.1); SODIUM LEVEL 144 MEQ/L (136-145)
== END ==
LOC: SKLAB8 07:00
DX: D64.9 Anemia, unspecified (principal); E87.0 Hyperosmolality and hypernatremia; I48.91 Unspecified atrial fibrillation
CPT/HCPCS: 80048

== ENCOUNTER → 2018-02-20 | Outpatient (REF) | payer MEDICARE, MEDICAID ==
[2018-02-20 14:36] LABS: HEMATOCRIT 42.5 % (42.0-52.0); HEMOGLOBIN 13.6 g/dl (13.5-17.5); MEAN CORPUSCULAR HEMOGLOBIN 28.5 pg (27.0-33.0); MEAN CORPUSCULAR VOLUME 88.9 fl (80.0-96.0); PLATELET COUNT, AUTOMATED 236 10^3/uL (150-450); RED BLOOD COUNT 4.78 10^6/uL (4.30-6.10); RED CELL DISTRIBUTION WIDTH 15.4 % (11.5-14.5); WHITE BLOOD COUNT 6.3 10^3/uL (4.0-10.0)
[2018-02-20 15:07] LABS: ANION GAP 8 MEQ/L (8-16); BLOOD UREA NITROGEN 20 MG/DL (7-18); CALCIUM LEVEL 9.4 MG/DL (8.8-10.2); CARBON DIOXIDE LEVEL 29 MEQ/L (21-32); CHLORIDE LEVEL 108 MEQ/L (98-107); CREATININE FOR GFR 1.09 MG/DL (0.70-1.30); GLOMERULAR FILTRATION RATE > 60.0 (>35); GLUCOSE, FASTING 131 MG/DL (70-100); SODIUM LEVEL 145 MEQ/L (136-145); VALPROIC ACID (DEPAKOTE) 14.9 UG/ML (50.0-100.0)
== END ==
LOC: SKLAB8 07:00
DX: F03.90 Unspecified dementia, unspecified severity, without behavioral disturbance, psychotic disturbance, mood disturbance, and anxiety (principal); I48.91 Unspecified atrial fibrillation; I10 Essential (primary) hypertension
CPT/HCPCS: 80164

== ENCOUNTER → 2018-03-26 | Outpatient (REF) | payer MEDICARE, MEDICAID ==
[2018-03-26 09:19] LABS: HEMATOCRIT 39.1 % (42.0-52.0); HEMOGLOBIN 12.7 g/dl (13.5-17.5); MEAN CORPUSCULAR HEMOGLOBIN 28.2 pg (27.0-33.0); MEAN CORPUSCULAR HGB CONC 32.5 g/dl (32.0-36.5); MEAN CORPUSCULAR VOLUME 86.9 fl (80.0-96.0); PLATELET COUNT, AUTOMATED 190 10^3/uL (150-450); RED CELL DISTRIBUTION WIDTH 15.4 % (11.5-14.5); WHITE BLOOD COUNT 6.3 10^3/uL (4.0-10.0)
[2018-03-26 09:58] LABS: ANION GAP 7 MEQ/L (8-16); BLOOD UREA NITROGEN 20 MG/DL (7-18); CALCIUM LEVEL 8.9 MG/DL (8.8-10.2); CARBON DIOXIDE LEVEL 26 MEQ/L (21-32); CHLORIDE LEVEL 108 MEQ/L (98-107); CREATININE FOR GFR 1.04 MG/DL (0.70-1.30); GLOMERULAR FILTRATION RATE > 60.0 (>35); GLUCOSE, FASTING 92 MG/DL (70-100); POTASSIUM SERUM 3.9 MEQ/L (3.5-5.1); SODIUM LEVEL 141 MEQ/L (136-145)
== END ==
LOC: SKLAB8 07:00
DX: F03.90 Unspecified dementia, unspecified severity, without behavioral disturbance, psychotic disturbance, mood disturbance, and anxiety (principal); I48.91 Unspecified atrial fibrillation; I10 Essential (primary) hypertension
CPT/HCPCS: 80048

== ENCOUNTER → 2018-03-31 | Outpatient (REF) | payer MEDICARE, MEDICAID ==
[2018-03-31 15:06] LABS: APPEARANCE, URINE CLOUDY (CLEAR); BACTERIA, URINE AUTO NEGATIVE (NEGATIVE); BILIRUBIN, URINE AUTO NEGATIVE (NEGATIVE); BLOOD, URINE BLOOD 1+ (NEGATIVE); COLOR, URINE AMBER (YELLOW); GLUCOSE, URINE (UA) AUTO NEGATIVE (NEGATIVE); HEMATOCRIT 41.1 % (42.0-52.0); KETONE, URINE AUTO NEGATIVE (NEGATIVE); LEUKOCYTE ESTERASE, URINE AUTO NEGATIVE (NEGATIVE); MEAN CORPUSCULAR HEMOGLOBIN 28.6 pg (27.0-33.0); MEAN CORPUSCULAR HGB CONC 31.6 g/dl (32.0-36.5); MEAN CORPUSCULAR VOLUME 90.5 fl (80.0-96.0); NITRITE, URINE AUTO NEGATIVE (NEGATIVE); PLATELET COUNT, AUTOMATED 211 10^3/uL (150-450); PROTEIN, URINE AUTO NEGATIVE (NEGATIVE); RBC, URINE AUTO 92 /HPF (0-3); RED BLOOD COUNT 4.54 10^6/uL (4.30-6.10); RED CELL DISTRIBUTION WIDTH 15.6 % (11.5-14.5); SPECIFIC GRAVITY URINE AUTO 1.017 (1.002-1.035); SQUAMOUS EPITHELIAL CELL UR AU 0 /HPF (0-6); UROBILINOGEN, URINE AUTO 0.2 mg/dL (0.0-2.0); WBC, URINE AUTO 1 /HPF (0-3); WHITE BLOOD COUNT 6.3 10^3/uL (4.0-10.0)
== END ==
LOC: SKLAB8 14:00
DX: R31.9 Hematuria, unspecified (principal); I48.91 Unspecified atrial fibrillation
CPT/HCPCS: 85027

== ENCOUNTER → 2018-04-01 | Outpatient (REF) | payer MEDICARE, MEDICAID ==
[2018-04-01 08:01] LABS: HEMATOCRIT 40.4 % (42.0-52.0); HEMOGLOBIN 12.9 g/dl (13.5-17.5); MEAN CORPUSCULAR HEMOGLOBIN 28.5 pg (27.0-33.0); MEAN CORPUSCULAR HGB CONC 31.9 g/dl (32.0-36.5); MEAN CORPUSCULAR VOLUME 89.4 fl (80.0-96.0); PLATELET COUNT, AUTOMATED 215 10^3/uL (150-450); RED BLOOD COUNT 4.52 10^6/uL (4.30-6.10); RED CELL DISTRIBUTION WIDTH 15.6 % (11.5-14.5); WHITE BLOOD COUNT 7.4 10^3/uL (4.0-10.0)
== END ==
LOC: SKLAB8 07:00
DX: I48.91 Unspecified atrial fibrillation (principal)
CPT/HCPCS: 85027

== ENCOUNTER → 2018-04-03 | Outpatient (REF) | payer MEDICARE, MEDICAID | LOC: SKLAB8 | DX: K62.5 Hemorrhage of anus and rectum (principal) ==

== ENCOUNTER → 2018-04-06 | Outpatient (CLI) | payer MEDICARE, MEDICAID | LOC: SKLAB8 20:43 | DX: K62.5 Hemorrhage of anus and rectum (principal) | CPT/HCPCS: 82270 ==

== ENCOUNTER → 2018-05-08 | Outpatient (REF) | payer MEDICARE, MEDICAID ==
[~2018-05-08] MED LIST changes: +FLOM0.4C39 PO; -FLOM5CAP PO; +MILK120011 PO; -MILKSUS PO
[2018-05-08 14:38] LABS: HEMATOCRIT 40.4 % (42.0-52.0); HEMOGLOBIN 13.1 g/dl (13.5-17.5); MEAN CORPUSCULAR HEMOGLOBIN 28.9 pg (27.0-33.0); MEAN CORPUSCULAR HGB CONC 32.4 g/dl (32.0-36.5); MEAN CORPUSCULAR VOLUME 89.2 fl (80.0-96.0); PLATELET COUNT, AUTOMATED 260 10^3/uL (150-450); RED BLOOD COUNT 4.53 10^6/uL (4.30-6.10); WHITE BLOOD COUNT 7.4 10^3/uL (4.0-10.0)
[2018-05-08 14:57] LABS: BLOOD UREA NITROGEN 29 MG/DL (7-18); CARBON DIOXIDE LEVEL 29 MEQ/L (21-32); CHLORIDE LEVEL 106 MEQ/L (98-107); CREATININE FOR GFR 1.14 MG/DL (0.70-1.30); GLOMERULAR FILTRATION RATE > 60.0 (>35); GLUCOSE, FASTING 116 MG/DL (70-100); POTASSIUM SERUM 3.9 MEQ/L (3.5-5.1); SODIUM LEVEL 143 MEQ/L (136-145)
== END ==
LOC: SKLAB8 08:00
PROVIDERS: ATTEND Nurse Practitioner Family
DX: F03.90 Unspecified dementia, unspecified severity, without behavioral disturbance, psychotic disturbance, mood disturbance, and anxiety (principal); R31.9 Hematuria, unspecified

== ENCOUNTER → 2018-05-18 | Outpatient (REF) | payer MEDICARE, MEDICAID | LOC: SKLAB8 08:00 | PROVIDERS: ATTEND Internal Medicine | DX: F03.90 Unspecified dementia, unspecified severity, without behavioral disturbance, psychotic disturbance, mood disturbance, and anxiety (principal); R31.9 Hematuria, unspecified ==

== ENCOUNTER → 2018-05-18 | Outpatient (REF) | payer MEDICARE, MEDICAID ==
[~2018-05-18] MED LIST changes: -MILK120011 PO; +MILK12002 PO
[2018-05-18 08:49] LABS: MEAN CORPUSCULAR HEMOGLOBIN 28.6 pg (27.0-33.0); MEAN CORPUSCULAR HGB CONC 31.6 g/dl (32.0-36.5); MEAN CORPUSCULAR VOLUME 90.7 fl (80.0-96.0); PLATELET COUNT, AUTOMATED 238 10^3/uL (150-450); RED BLOOD COUNT 4.19 10^6/uL (4.30-6.10); WHITE BLOOD COUNT 9.5 10^3/uL (4.0-10.0)
[2018-05-18 09:09] LABS: BLOOD UREA NITROGEN 29 MG/DL (7-18); CALCIUM LEVEL 8.8 MG/DL (8.8-10.2); CARBON DIOXIDE LEVEL 26 MEQ/L (21-32); CHLORIDE LEVEL 112 MEQ/L (98-107); CREATININE FOR GFR 1.18 MG/DL (0.70-1.30); GLOMERULAR FILTRATION RATE > 60.0 (>35); GLUCOSE, FASTING 112 MG/DL (70-100); POTASSIUM SERUM 4.1 MEQ/L (3.5-5.1); SODIUM LEVEL 145 MEQ/L (136-145)
== END ==
LOC: SKLAB8 07:14 → M LAB 07:14
PROVIDERS: ATTEND Internal Medicine
DX: R31.9 Hematuria, unspecified (principal); F03.90 Unspecified dementia, unspecified severity, without behavioral disturbance, psychotic disturbance, mood disturbance, and anxiety

== ENCOUNTER → 2018-05-25 | Outpatient (REF) | payer MEDICARE, MEDICAID ==
[~2018-05-25] MED LIST changes: +MILK120011 PO; -MILK12002 PO
== END ==
LOC: SKLAB8 08:00
PROVIDERS: ATTEND Nurse Practitioner Adult Health
DX: R31.9 Hematuria, unspecified (principal)

== ENCOUNTER → 2018-07-02 | Outpatient (REF) | payer MEDICARE, MEDICAID ==
[2018-07-02 09:28] LABS: HEMATOCRIT 39.9 % (42.0-52.0); HEMOGLOBIN 12.6 g/dl (13.5-17.5); MEAN CORPUSCULAR HEMOGLOBIN 28.6 pg (27.0-33.0); MEAN CORPUSCULAR HGB CONC 31.6 g/dl (32.0-36.5); MEAN CORPUSCULAR VOLUME 90.5 fl (80.0-96.0); PLATELET COUNT, AUTOMATED 235 10^3/uL (150-450); RED BLOOD COUNT 4.41 10^6/uL (4.30-6.10); WHITE BLOOD COUNT 7.7 10^3/uL (4.0-10.0)
[2018-07-02 09:42] LABS: BLOOD UREA NITROGEN 24 MG/DL (7-18); CALCIUM LEVEL 8.9 MG/DL (8.8-10.2); CARBON DIOXIDE LEVEL 30 MEQ/L (21-32); CHLORIDE LEVEL 107 MEQ/L (98-107); GLOMERULAR FILTRATION RATE > 60.0 (>35); GLUCOSE, FASTING 85 MG/DL (70-100); POTASSIUM SERUM 4.3 MEQ/L (3.5-5.1); SODIUM LEVEL 144 MEQ/L (136-145)
== END ==
LOC: SKLAB8 07:00
PROVIDERS: ATTEND Internal Medicine
DX: I48.91 Unspecified atrial fibrillation (principal); F03.90 Unspecified dementia, unspecified severity, without behavioral disturbance, psychotic disturbance, mood disturbance, and anxiety

== ENCOUNTER → 2018-07-16 | Outpatient (REF) | payer MEDICARE, MEDICAID ==
[2018-07-16 10:21] LABS: HEMATOCRIT 40.8 % (42.0-52.0); HEMOGLOBIN 12.8 g/dl (13.5-17.5); MEAN CORPUSCULAR HEMOGLOBIN 28.5 pg (27.0-33.0); MEAN CORPUSCULAR HGB CONC 31.4 g/dl (32.0-36.5); MEAN CORPUSCULAR VOLUME 90.9 fl (80.0-96.0); PLATELET COUNT, AUTOMATED 252 10^3/uL (150-450); RED BLOOD COUNT 4.49 10^6/uL (4.30-6.10); WHITE BLOOD COUNT 7.4 10^3/uL (4.0-10.0)
== END ==
LOC: SKLAB8 07:01
PROVIDERS: ATTEND Family Medicine
DX: R31.9 Hematuria, unspecified (principal)

== ENCOUNTER → 2018-09-24 | Outpatient (REF) | payer MEDICARE, MEDICAID ==
[~2018-09-24] MED LIST changes: -ASPI1TAB PO; +ASPI81TA26 PO; +METO-1 OR; +SERT-141 PO; -SERT50TA PO; -TOPR25TA OR
== END ==
LOC: SKLAB8 07:00
PROVIDERS: ATTEND Internal Medicine
DX: I48.91 Unspecified atrial fibrillation (principal)

== ENCOUNTER → 2018-12-24 | Outpatient (REF) | payer MEDICARE, MEDICAID ==
[~2018-12-24] MED LIST changes: +ACET-683 PO; +ACET-908 PO; +ASPI81CH33 PO; +DEPA1CAP PO; +GENT1SOL16 OU; +MOM30SS PO; +OMEP1CAP73 PO; -OMEP20CA3 PO; +OMEP20TA17 PO; +SENN-3 PO; +VITA-144 PO
[2018-12-24 08:38] LABS: HEMATOCRIT 39.2 % (42.0-52.0); MEAN CORPUSCULAR HEMOGLOBIN 28.6 pg (27.0-33.0); MEAN CORPUSCULAR HGB CONC 30.6 g/dl (32.0-36.5); MEAN CORPUSCULAR VOLUME 93.3 fl (80.0-96.0); PLATELET COUNT, AUTOMATED 238 10^3/uL (150-450); WHITE BLOOD COUNT 7.7 10^3/uL (4.0-10.0)
[2018-12-24 10:20] LABS: BLOOD UREA NITROGEN 23 MG/DL (7-18); CALCIUM LEVEL 9.3 MG/DL (8.8-10.2); CARBON DIOXIDE LEVEL 29 MEQ/L (21-32); CHLORIDE LEVEL 108 MEQ/L (98-107); CREATININE FOR GFR 1.08 MG/DL (0.70-1.30); GLOMERULAR FILTRATION RATE > 60.0 (>35); GLUCOSE, FASTING 90 MG/DL (70-100); POTASSIUM SERUM 4.5 MEQ/L (3.5-5.1); SODIUM LEVEL 143 MEQ/L (136-145)
== END ==
LOC: SKLAB8 07:00
PROVIDERS: ATTEND Internal Medicine
DX: I48.91 Unspecified atrial fibrillation (principal); I10 Essential (primary) hypertension

== ENCOUNTER → 2019-02-21 | Outpatient (REF) | payer MEDICARE, MEDICAID ==
[~2019-02-21] MED LIST changes: -ACET-683 PO; -ACET-908 PO; -ASPI81CH33 PO; -DEPA1CAP PO; -GENT1SOL16 OU; -MOM30SS PO; -OMEP1CAP73 PO; +OMEP20CA4 PO; -OMEP20TA17 PO; -SENN-3 PO; -VITA-144 PO
--- NOTE | 2019-02-21 11:50 | REP ---
REASON: Trauma. 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 There is an exaggerated kyphosis. Vertebral body height appears to be within normal limits. Vertebral body alignment is within normal limits. There is marginal osteophytosis throughout the thoracic spine with a bamboo appearing spinal contour. The bones are demineralized. I cannot rule out a subtle fracture on this limited plain film exam. IMPRESSION: Chronic changes are suspected as described above, however, CT is recommended since the subtle fracture cannot be ruled out by this plain film exam. Electronically Signed by Fernando Brown DO 02/21/2019 11:53 A
--- NOTE | 2019-02-21 12:00 | REP ---
REASON: Pain after trauma. Limited plain film examination of the lumbar spine shows a grade 3 superior endplate concave deformity involving L4. The age of this compression fracture cannot be determined by this plain film exam. Vertebral body height and alignment is otherwise within normal limits. There is disc space narrowing and anterior lipping at every level. There is degenerative facet joint change seen at every level bilaterally. There is an acute angle deformity at the L4-5 level. IMPRESSION: Abnormalities as described above. CT is recommended. Electronically Signed by Fernando Brown DO 02/21/2019 12:02 P
--- NOTE | 2019-02-21 12:02 | REP ---
REASON FOR EXAM: Neck pain after trauma. There are no priors. The bones are demineralized. I cannot rule out a fracture. Degenerative facet and uncovertebral joint changes are present at every level bilaterally. Flexion and extension is limited radiographically. Varying degrees of foraminal stenosis is seen at every level bilaterally. IMPRESSION: I cannot rule out a fracture. The patient has been involved in significant trauma to the degree at which imaging was obtained. This imaging is insensitive in detecting fractures compared to CT. CT is recommended to rule out a fracture. Electronically Signed by Fernando Brown DO 02/21/2019 12:04 P
== END ==
LOC: M LAB 10:09
PROVIDERS: ATTEND Internal Medicine
DX: R60.9 Edema, unspecified (principal)

== ENCOUNTER → 2019-02-22 | Outpatient (CLI) | payer MEDICARE, MEDICAID ==
--- NOTE | 2019-02-22 11:48 | REP ---
CT brain without contrast: History: Head injury in a fall. Comparison head CT study September 04, 2017. Findings: Digital preliminary cardiac cath tech radiograph is unremarkable. Bone window settings demonstrate an intact bony calvarium. Visualized paranasal sinuses are clear. No intraorbital abnormality is appreciated. There is advanced diffuse atrophy. Mild small vessel atherosclerotic changes are seen in the periventricular white matter of the frontal lobes. There is no evidence of acute hemorrhage, infarct, mass or midline shift. No extra-axial fluid collection is seen. Impression: Advanced diffuse atrophy. Small vessel changes. No skull fracture or intracranial injury seen. Electronically Signed by Sheldon Bowie MD 02/22/2019 01:52 P
== END ==
LOC: M RAD 10:48
PROVIDERS: ATTEND Internal Medicine
DX: S09.90XA Unspecified injury of head, initial encounter (principal); X58.XXXA Exposure to other specified factors, initial encounter; Y92.89 Other specified places as the place of occurrence of the external cause

== ENCOUNTER → 2019-02-24 | Outpatient (REF) | payer MEDICARE, MEDICAID ==
[2019-02-24 10:02] LABS: HEMATOCRIT 35.6 % (42.0-52.0); HEMOGLOBIN 11.2 g/dl (13.5-17.5); MEAN CORPUSCULAR HEMOGLOBIN 28.4 pg (27.0-33.0); MEAN CORPUSCULAR HGB CONC 31.5 g/dl (32.0-36.5); MEAN CORPUSCULAR VOLUME 90.4 fl (80.0-96.0); PLATELET COUNT, AUTOMATED 174 10^3/uL (150-450); RED BLOOD COUNT 3.94 10^6/uL (4.30-6.10); WHITE BLOOD COUNT 6.8 10^3/uL (4.0-10.0)
== END ==
LOC: SKLAB8 08:00
PROVIDERS: ATTEND Internal Medicine
DX: I10 Essential (primary) hypertension (principal)

== ENCOUNTER → 2019-02-26 | Outpatient (REF) | payer MEDICARE, MEDICAID ==
[2019-02-26 12:03] LABS: HEMATOCRIT 36.1 % (42.0-52.0); HEMOGLOBIN 11.4 g/dl (13.5-17.5); MEAN CORPUSCULAR HEMOGLOBIN 28.2 pg (27.0-33.0); MEAN CORPUSCULAR HGB CONC 31.6 g/dl (32.0-36.5); MEAN CORPUSCULAR VOLUME 89.4 fl (80.0-96.0); PLATELET COUNT, AUTOMATED 204 10^3/uL (150-450); RED BLOOD COUNT 4.04 10^6/uL (4.30-6.10); WHITE BLOOD COUNT 5.2 10^3/uL (4.0-10.0)
== END ==
LOC: SKLAB8 08:38
PROVIDERS: ATTEND Internal Medicine
DX: Z79.899 Other long term (current) drug therapy (principal)

== ENCOUNTER → 2019-03-05 | Outpatient (REF) | payer MEDICARE, MEDICAID ==
[2019-03-05 07:06] LABS: HEMATOCRIT 35.2 % (42.0-52.0); HEMOGLOBIN 11.1 g/dl (13.5-17.5); MEAN CORPUSCULAR HEMOGLOBIN 28.2 pg (27.0-33.0); MEAN CORPUSCULAR HGB CONC 31.5 g/dl (32.0-36.5); MEAN CORPUSCULAR VOLUME 89.6 fl (80.0-96.0); PLATELET COUNT, AUTOMATED 230 10^3/uL (150-450); RED BLOOD COUNT 3.93 10^6/uL (4.30-6.10)
== END ==
LOC: SKLAB8 08:00
PROVIDERS: ATTEND Internal Medicine
DX: Z79.899 Other long term (current) drug therapy (principal)

== ENCOUNTER → 2019-04-01 | Outpatient (REF) | payer MEDICARE ==
[~2019-04-01] MED LIST changes: +ACET-683 PO; +ACET-908 PO; +ASPI81CH33 PO; +DEPA1CAP PO; +GENT1SOL16 OU; +MOM30SS PO; +OMEP20TA17 PO; +SENN-3 PO; +VITA-144 PO
[2019-04-01 10:09] LABS: HEMATOCRIT 41.6 % (42.0-52.0); HEMOGLOBIN 12.7 g/dl (13.5-17.5); MEAN CORPUSCULAR HEMOGLOBIN 27.9 pg (27.0-33.0); MEAN CORPUSCULAR HGB CONC 30.5 g/dl (32.0-36.5); MEAN CORPUSCULAR VOLUME 91.2 fl (80.0-96.0); PLATELET COUNT, AUTOMATED 248 10^3/uL (150-450); RED BLOOD COUNT 4.56 10^6/uL (4.30-6.10); WHITE BLOOD COUNT 8.4 10^3/uL (4.0-10.0)
[2019-04-01 11:11] LABS: CALCIUM LEVEL 9.5 MG/DL (8.8-10.2); CREATININE FOR GFR 1.27 MG/DL (0.70-1.30); GLOMERULAR FILTRATION RATE 57.4 (>35); POTASSIUM SERUM 4.4 MEQ/L (3.5-5.1)
== END ==
LOC: SKLAB8 08:00
PROVIDERS: ATTEND Internal Medicine
DX: I48.20 Chronic atrial fibrillation, unspecified (principal); Z79.899 Other long term (current) drug therapy

== ENCOUNTER 2019-04-06 19:29 | Emergency (ER) | payer MEDICARE ==
[~2019-04-06 19:29] MED LIST changes: -ACET-683 PO; -ACET-908 PO; -ASPI81CH33 PO; -DEPA1CAP PO; -GENT1SOL16 OU; -MOM30SS PO; -OMEP20TA17 PO; -SENN-3 PO; -VITA-144 PO
[2019-04-06] MEDS ORDERED: NS 1,000 ML IV SCH (19:43)
--- NOTE | 2019-04-06 20:08 | REPVR ---
PROCEDURE INFORMATION: Exam: CT Cervical Spine Without Contrast Exam date and time: 04/06/2019 7:55 PM Age: 84 years old Clinical history: Injury or trauma; Fall; Initial encounter; Blunt trauma TECHNIQUE: Imaging protocol: Computed tomography images of the cervical spine without contrast. Radiation optimization: All CT scans at this facility use at least one of these dose optimization techniques: automated exposure control; mA and/or kV adjustment per patient size (includes targeted exams where dose is matched to clinical indication); or iterative reconstruction. COMPARISON: No relevant prior studies available. FINDINGS: Vertebrae: No fracture or subluxation. Discs/Spinal canal/Neural foramina: Mild degenerative disc disease and facet arthrosis throughout the cervical spine. No bony spinal stenosis. Soft tissues: Unremarkable. Lungs: Lung apices are clear. IMPRESSION: No fracture or subluxation. Electronically signed by: Paul Koenig On 04/06/2019 20:08:47 PM
--- NOTE | 2019-04-06 20:10 | REPVR ---
PROCEDURE INFORMATION: Exam: CT Head Without Contrast Exam date and time: 04/06/2019 7:55 PM Age: 84 years old Clinical history: Injury or trauma; Fall; Initial encounter; Blunt trauma (contusions or hematomas) TECHNIQUE: Imaging protocol: Computed tomography of the head without contrast. Radiation optimization: All CT scans at this facility use at least one of these dose optimization techniques: automated exposure control; mA and/or kV adjustment per patient size (includes targeted exams where dose is matched to clinical indication); or iterative reconstruction. COMPARISON: CT Head without contrast 02/22/2019 11:08 AM FINDINGS: Brain: Global cerebral atrophy is consistent with patient's age. Decreased attenuation within the white matter tracts of both cerebral hemispheres is nonspecific but typically seen with small vessel disease/chronic white matter ischemic changes of aging. No intracranial hemorrhage or mass effect. Ventricles: Unremarkable. No ventriculomegaly. Bones/joints: Unremarkable. No acute fracture. Sinuses: Visualized sinuses are unremarkable. No fluid levels. Mastoid air cells: Visualized mastoid air cells are well aerated. Soft tissues: Unremarkable. IMPRESSION: No acute abnormality. Electronically signed by: Paul Koenig On 04/06/2019 20:10:35 PM
[2019-04-06 20:11] LABS: BASO % 0.5 % (0.0-1.0); EOS # 0.2 10^3/uL (0.0-0.5); EOS % 2.8 % (0.0-3.0); HEMATOCRIT 41.2 % (42.0-52.0); HEMOGLOBIN 12.6 g/dl (13.5-17.5); LYMPH % 11.9 % (24.0-44.0); MEAN CORPUSCULAR HGB CONC 30.6 g/dl (32.0-36.5); MEAN CORPUSCULAR VOLUME 91.6 fl (80.0-96.0); MONO % 12.1 % (0.0-5.0); NEUTROPHILS # 5.9 10^3/uL (1.5-8.5); NEUTROPHILS % 72.3 % (36.0-66.0); PLATELET COUNT, AUTOMATED 270 10^3/uL (150-450); WHITE BLOOD COUNT 8.1 10^3/uL (4.0-10.0)
[2019-04-06 20:46] LABS: ALBUMIN 3.1 GM/DL (3.2-5.2); ALT/SGPT 22 U/L (12-78); BILIRUBIN,DIRECT < 0.1 MG/DL (0.0-0.2); BILIRUBIN,TOTAL 0.3 MG/DL (0.2-1.0); BLOOD UREA NITROGEN 34 MG/DL (7-18); CALCIUM LEVEL 9.1 MG/DL (8.8-10.2); CARBON DIOXIDE LEVEL 25 MEQ/L (21-32); CHLORIDE LEVEL 106 MEQ/L (98-107); CPK CREATINE PHOSPHOKINASE 59 U/L (39-308); CREATININE FOR GFR 1.34 MG/DL (0.70-1.30); GLOMERULAR FILTRATION RATE 53.9 (>35); GLUCOSE, FASTING 176 MG/DL (70-100); MB/CK RELATIVE INDEX 1.69 (< OR =4); POTASSIUM SERUM 4.4 MEQ/L (3.5-5.1); SODIUM LEVEL 140 MEQ/L (136-145); TOTAL PROTEIN 7.2 GM/DL (6.4-8.2); TROPONIN I < 0.02 NG/ML (< 0.10)
[2019-04-06] MEDS ORDERED: VITA-144 PO (21:02)
[2019-04-06] MEDS ORDERED: ACET-908 PO (21:02)
[2019-04-06] MEDS ORDERED: ASPI81CH33 PO (21:02)
[2019-04-06] MEDS ORDERED: SERT-141 PO (21:11)
[2019-04-06] MEDS ORDERED: GENT1SOL16 OU (21:11)
[2019-04-06] MEDS ORDERED: DEPA1CAP PO (21:11)
[2019-04-06] MEDS ORDERED: SENN-3 PO (21:11)
[2019-04-06] MEDS ORDERED: ACET-683 PO (21:11)
[2019-04-06] MEDS ORDERED: MOM30SS PO (21:11)
[2019-04-06] MEDS ORDERED: OMEP20TA17 PO (21:11)
[2019-04-06 22:02] VITALS: BP 149/72
--- NOTE | 2019-04-07 07:38 | REP ---
Clinical: Trauma. Technique: Frontal view of the chest with multiple views of the right hemithorax. Findings: Examination is incomplete/nondiagnostic. No obvious acute right rib fracture identified. Impression: Limited examination. No obvious acute right rib fracture Electronically Signed by Celestine Stout MD 04/07/2019 07:30 A
== END 2019-04-06 22:21 | disposition home or self-care (01) ==
LOC: M ED 19:29 → EDBD 19:29 → M ED 22:21
DX: S09.90XA Unspecified injury of head, initial encounter (principal); S01.102A Unspecified open wound of left eyelid and periocular area, initial encounter; W18.39XA Other fall on same level, initial encounter; Y92.129 Unspecified place in nursing home as the place of occurrence of the external cause; I10 Essential (primary) hypertension; Z91.030 Bee allergy status; Z85.46 Personal history of malignant neoplasm of prostate; Z79.899 Other long term (current) drug therapy; Z79.82 Long term (current) use of aspirin

== ENCOUNTER → 2019-05-19 | Outpatient (REF) | payer MEDICARE ==
[~2019-05-19] MED LIST changes: +ACET-683 PO; +ACET-908 PO; +ASPI81CH33 PO; +DEPA1CAP PO; +GENT1SOL16 OU; +MOM30SS PO; +OMEP1CAP73 PO; -OMEP20CA4 PO; +OMEP20TA17 PO; +SENN-3 PO; +VITA-144 PO
--- NOTE | 2019-05-19 23:19 | ECGEPIP ---
[facility] Test Date: 2019-05-19 Pat Name: NHAN COULTER Department: Room: - Gender: Male Help Desk Specialist: JENIFER : 1935 Requested By: NURIA PAINTER Order Number: [id number] Reading MD: Brant Abbasi Measurements Intervals [place] Rate: 64 P: 81 [place]: 212 QRS: -57 QRSD: 110 T: 36 QT: 335 QTc: 347 Interpretive Statements SINUS RHYTHM WITH FIRST DEGREE AV BLOCK LOW QRS VOLTAGE IN PRECORDIAL LEADS Poor R-wave progression Mild nonspecific QRS widening Left axis deviation Possible LEFT ANTERIOR FASCICULAR BLOCK Electronically Signed on 05-19-2019 23:19:21 EST by Brant Abbasi
== END ==
LOC: SKLAB8 11:20
PROVIDERS: ATTEND Internal Medicine
DX: Z79.899 Other long term (current) drug therapy (principal)

== ENCOUNTER 2019-06-29 11:20 | Emergency (ER) | payer MEDICARE ==
[~2019-06-29] VITALS: Ht 182.9 cm; Wt 65.0 kg
[2019-06-29] MEDS ORDERED: OMEP-221 PO (12:08)
[2019-06-29] MEDS ORDERED: VITABCTA PO (12:08)
[2019-06-29] MEDS ORDERED: VITAD1000T PO (12:08)
[2019-06-29] MEDS ORDERED: NS 1,000 ML IV ONE (12:45)
[2019-06-29 13:42] LABS: HEMATOCRIT 42.2 % (42.0-52.0); HEMOGLOBIN 13.1 g/dl (13.5-17.5); MEAN CORPUSCULAR HEMOGLOBIN 27.8 pg (27.0-33.0); MEAN CORPUSCULAR VOLUME 89.4 fl (80.0-96.0); PLATELET COUNT, AUTOMATED 223 10^3/uL (150-450); RED BLOOD COUNT 4.72 10^6/uL (4.30-6.10); WHITE BLOOD COUNT 7.9 10^3/uL (4.0-10.0)
[2019-06-29 14:01] LABS: CALCIUM LEVEL 9.7 MG/DL (8.8-10.2); CREATININE FOR GFR 1.26 MG/DL (0.70-1.30); GLOMERULAR FILTRATION RATE 57.9 (>35); POTASSIUM SERUM 4.7 MEQ/L (3.5-5.1)
[2019-06-29 15:00] VITALS: BP 149/70
== END 2019-06-29 15:13 | disposition home or self-care (01) ==
LOC: M ED 11:20 → EDBD 11:20 → M ED 15:13
DX: R41.82 Altered mental status, unspecified (principal); I48.91 Unspecified atrial fibrillation; I11.9 Hypertensive heart disease without heart failure; I25.10 Atherosclerotic heart disease of native coronary artery without angina pectoris; E78.5 Hyperlipidemia, unspecified; G30.9 Alzheimer's disease, unspecified; K21.9 Gastro-esophageal reflux disease without esophagitis; Z91.030 Bee allergy status; Z79.899 Other long term (current) drug therapy; Z79.82 Long term (current) use of aspirin

== ENCOUNTER → 2019-07-01 | Outpatient (REF) | payer MEDICARE ==
[~2019-07-01] MED LIST changes: +OMEP-221 PO; +VITABCTA PO; +VITAD1000T PO
[2019-07-01 09:38] LABS: HEMOGLOBIN 11.8 g/dl (13.5-17.5); MEAN CORPUSCULAR HGB CONC 31.1 g/dl (32.0-36.5); MEAN CORPUSCULAR VOLUME 90.3 fl (80.0-96.0); PLATELET COUNT, AUTOMATED 209 10^3/uL (150-450); RED BLOOD COUNT 4.21 10^6/uL (4.30-6.10)
[2019-07-01 10:10] LABS: BLOOD UREA NITROGEN 27 MG/DL (7-18); CALCIUM LEVEL 9.1 MG/DL (8.8-10.2); CARBON DIOXIDE LEVEL 27 MEQ/L (21-32); CHLORIDE LEVEL 110 MEQ/L (98-107); CREATININE FOR GFR 1.22 MG/DL (0.70-1.30); GLOMERULAR FILTRATION RATE > 60.0 (>35); GLUCOSE, FASTING 106 MG/DL (70-100); POTASSIUM SERUM 4.1 MEQ/L (3.5-5.1); SODIUM LEVEL 142 MEQ/L (136-145)
== END ==
LOC: SKLAB8 07:00
PROVIDERS: ATTEND Internal Medicine
DX: Z79.899 Other long term (current) drug therapy (principal)

== ENCOUNTER → 2019-07-28 | Outpatient (REF) | payer MEDICARE | LOC: SKLAB8 07:00 | PROVIDERS: ATTEND Internal Medicine | DX: Z79.899 Other long term (current) drug therapy (principal) ==

== ENCOUNTER → 2019-09-30 | Outpatient (REF) | payer MEDICARE ==
[2019-09-30 08:31] LABS: HEMATOCRIT 40.6 % (42.0-52.0); HEMOGLOBIN 12.4 g/dl (13.5-17.5); MEAN CORPUSCULAR HEMOGLOBIN 27.4 pg (27.0-33.0); MEAN CORPUSCULAR HGB CONC 30.5 g/dl (32.0-36.5); MEAN CORPUSCULAR VOLUME 89.8 fl (80.0-96.0); PLATELET COUNT, AUTOMATED 265 10^3/uL (150-450); RED BLOOD COUNT 4.52 10^6/uL (4.30-6.10); WHITE BLOOD COUNT 8.6 10^3/uL (4.0-10.0)
[2019-09-30 09:01] LABS: CALCIUM LEVEL 9.5 MG/DL (8.8-10.2); CREATININE FOR GFR 1.23 MG/DL (0.70-1.30); GLOMERULAR FILTRATION RATE 59.5 (>35); POTASSIUM SERUM 4.2 MEQ/L (3.5-5.1)
== END ==
LOC: SKLAB8 07:00
PROVIDERS: ATTEND Internal Medicine
DX: I48.91 Unspecified atrial fibrillation (principal); I10 Essential (primary) hypertension; Z79.899 Other long term (current) drug therapy

== ENCOUNTER → 2019-12-30 | Outpatient (REF) | payer MEDICARE ==
[~2019-12-30] MED LIST changes: +D31000TA2 PO; -VITAD1000T PO
[2019-12-30 12:25] LABS: HEMATOCRIT 41.5 % (42.0-52.0); HEMOGLOBIN 12.3 g/dl (13.5-17.5); MEAN CORPUSCULAR HEMOGLOBIN 27.9 pg (27.0-33.0); MEAN CORPUSCULAR HGB CONC 29.6 g/dl (32.0-36.5); MEAN CORPUSCULAR VOLUME 94.1 fl (80.0-96.0); PLATELET COUNT, AUTOMATED 214 10^3/uL (150-450); RED BLOOD COUNT 4.41 10^6/uL (4.30-6.10); WHITE BLOOD COUNT 6.6 10^3/uL (4.0-10.0)
[2019-12-30 12:27] LABS: BLOOD UREA NITROGEN 33 MG/DL (7-18); CALCIUM LEVEL 9.1 MG/DL (8.8-10.2); CARBON DIOXIDE LEVEL 26 MEQ/L (21-32); CHLORIDE LEVEL 112 MEQ/L (98-107); CREATININE FOR GFR 1.17 MG/DL (0.70-1.30); GLOMERULAR FILTRATION RATE > 60.0 (>35); GLUCOSE, FASTING 93 MG/DL (70-100); POTASSIUM SERUM 4.7 MEQ/L (3.5-5.1); SODIUM LEVEL 143 MEQ/L (136-145)
== END ==
LOC: SKLAB8 07:00
DX: I48.20 Chronic atrial fibrillation, unspecified (principal)

== ENCOUNTER → 2020-01-27 | Outpatient (REF) | payer MEDICARE ==
[2020-01-27 08:46] LABS: ALBUMIN 3.3 GM/DL (3.2-5.2); ALT/SGPT 26 U/L (12-78); BILIRUBIN,DIRECT < 0.1 MG/DL (0.0-0.2); BILIRUBIN,TOTAL 0.3 MG/DL (0.2-1.0); TOTAL PROTEIN 6.9 GM/DL (6.4-8.2); VALPROIC ACID (DEPAKOTE) 6.3 UG/ML (50.0-100.0)
== END ==
LOC: SKLAB8 07:00
PROVIDERS: ATTEND Internal Medicine
DX: Z79.899 Other long term (current) drug therapy (principal)

== ENCOUNTER → 2020-03-21 | Outpatient (REF) | payer MEDICARE, OTHER, MEDICAID ==
[2020-03-21 23:21] LABS: APPEARANCE, URINE HAZY (CLEAR); BACTERIA, URINE AUTO NEGATIVE (NEGATIVE); BILIRUBIN, URINE AUTO NEGATIVE (NEGATIVE); BLOOD, URINE BLOOD NEGATIVE (NEGATIVE); COLOR, URINE YELLOW (YELLOW); GLUCOSE, URINE (UA) AUTO NEGATIVE (NEGATIVE); KETONE, URINE AUTO NEGATIVE (NEGATIVE); LEUKOCYTE ESTERASE, URINE AUTO 2+ (NEGATIVE); MUCUS, URINE SMALL (NEGATIVE); NITRITE, URINE AUTO NEGATIVE (NEGATIVE); PROTEIN, URINE AUTO NEGATIVE (NEGATIVE); RBC, URINE AUTO 4 /HPF (0-3); SPECIFIC GRAVITY URINE AUTO 1.016 (1.002-1.035); SQUAMOUS EPITHELIAL CELL UR AU 0 /HPF (0-6); TRANSITIONAL EPITHELIAL AUTO <1 /HPF; UROBILINOGEN, URINE AUTO 0.2 mg/dL (0.0-2.0); WBC, URINE AUTO 36 /HPF (0-3)
[2020-03-21 23:53] LABS: CLOSTRIDIUM DIFFICILE PCR NEGATIVE (NEGATIVE)
== END ==
LOC: SKLAB2 20:00 → SKLAB8 20:00
DX: K92.1 Melena (principal); R19.7 Diarrhea, unspecified

== ENCOUNTER → 2020-03-22 | Outpatient (REF) | payer MEDICARE ==
[2020-03-22 09:13] LABS: CALCIUM LEVEL 9.6 MG/DL (8.8-10.2); CREATININE FOR GFR 1.24 MG/DL (0.70-1.30); GLOMERULAR FILTRATION RATE 58.8 (>35)
== END ==
LOC: SKLAB8 07:00
DX: K92.1 Melena (principal)

== ENCOUNTER → 2020-03-29 | Outpatient (REF) | payer MEDICARE ==
[~2020-03-29] MED LIST changes: +LISI10TA22 PO; -LISI10TA4 PO
== END ==
LOC: SKLAB8 03-28 13:44 → EDSTATUS 05-04 14:03
DX: Z20.828 Contact with and (suspected) exposure to other viral communicable diseases (principal)

== ENCOUNTER → 2020-03-30 | Outpatient (REF) | payer MEDICARE ==
[~2020-03-30] MED LIST changes: -LISI10TA22 PO; +LISI10TA4 PO
== END ==
LOC: SKLAB8 07:00
DX: Z53.9 Procedure and treatment not carried out, unspecified reason (principal)

== ENCOUNTER → 2020-04-05 | Outpatient (REF) | payer MEDICARE ==
[~2020-04-05] MED LIST changes: +LISI10TA22 PO; -LISI10TA4 PO
[2020-04-05 10:49] LABS: INFLUENZA A AMPLIFICATION NEGATIVE (NEGATIVE); INFLUENZA B AMPLIFICATION NEGATIVE (NEGATIVE)
== END ==
LOC: SKLAB8 08:00
PROVIDERS: ATTEND Internal Medicine
DX: Z20.828 Contact with and (suspected) exposure to other viral communicable diseases (principal)
CPT/HCPCS: 87502; U0003

== ENCOUNTER → 2020-04-12 | Outpatient (REF) | payer MEDICARE | LOC: SKLAB8 08:00 | PROVIDERS: ATTEND Internal Medicine | DX: Z20.828 Contact with and (suspected) exposure to other viral communicable diseases (principal) ==

== ENCOUNTER → 2020-04-19 | Outpatient (REF) | payer MEDICARE ==
[~2020-04-19] MED LIST changes: -LISI10TA22 PO; +LISI10TA4 PO
== END ==
LOC: SKLAB8 11:00
DX: Z20.828 Contact with and (suspected) exposure to other viral communicable diseases (principal)

== ENCOUNTER → 2020-04-26 | Outpatient (REF) | payer MEDICARE | LOC: SKLAB8 09:58 | DX: Z20.828 Contact with and (suspected) exposure to other viral communicable diseases (principal) ==

== ENCOUNTER → 2020-05-03 | Outpatient (REF) | payer MEDICARE | LOC: SKLAB8 10:00 | DX: Z20.828 Contact with and (suspected) exposure to other viral communicable diseases (principal) ==

== ENCOUNTER → 2020-05-10 | Outpatient (REF) | payer MEDICARE | LOC: SKLAB8 10:00 | DX: Z20.828 Contact with and (suspected) exposure to other viral communicable diseases (principal) ==

== ENCOUNTER → 2020-05-17 | Outpatient (REF) | payer MEDICARE | LOC: SKLAB8 10:00 | PROVIDERS: ATTEND Internal Medicine | DX: Z11.52 Encounter for screening for COVID-19 (principal) ==

== ENCOUNTER → 2020-05-24 | Outpatient (REF) | payer MEDICARE | LOC: SKLAB8 10:00 | PROVIDERS: ATTEND Internal Medicine | DX: Z20.822 Contact with and (suspected) exposure to COVID-19 (principal) ==

== ENCOUNTER → 2020-05-31 | Outpatient (REF) | payer MEDICARE ==
[~2020-05-31] MED LIST changes: +LISI10TA22 PO; -LISI10TA4 PO
== END ==
LOC: SKLAB8 09:00
PROVIDERS: ATTEND Internal Medicine
DX: Z20.822 Contact with and (suspected) exposure to COVID-19 (principal)

== ENCOUNTER → 2020-06-07 | Outpatient (REF) | payer MEDICARE | LOC: SKLAB8 10:00 | PROVIDERS: ATTEND Internal Medicine | DX: Z20.822 Contact with and (suspected) exposure to COVID-19 (principal) ==

== ENCOUNTER → 2020-06-14 | Outpatient (REF) | payer MEDICARE ==
[~2020-06-14] MED LIST changes: -LISI10TA22 PO; +LISI10TA4 PO
== END ==
LOC: SKLAB8 10:30
PROVIDERS: ATTEND Internal Medicine
DX: Z20.822 Contact with and (suspected) exposure to COVID-19 (principal)

== ENCOUNTER → 2020-06-21 | Outpatient (REF) | payer MEDICARE ==
[~2020-06-21] MED LIST changes: +LISI10TA22 PO; -LISI10TA4 PO
== END ==
LOC: SKLAB8 09:00
PROVIDERS: ATTEND Internal Medicine
DX: Z20.822 Contact with and (suspected) exposure to COVID-19 (principal)

== ENCOUNTER → 2020-06-28 | Outpatient (REF) | payer MEDICARE | LOC: SKLAB8 09:00 | PROVIDERS: ATTEND Internal Medicine | DX: Z20.822 Contact with and (suspected) exposure to COVID-19 (principal) ==

== ENCOUNTER → 2020-07-04 | Outpatient (REF) | payer MEDICARE ==
[2020-07-04 10:51] LABS: HEMOGLOBIN 11.5 g/dl (13.5-17.5); MEAN CORPUSCULAR HEMOGLOBIN 28.4 pg (27.0-33.0); MEAN CORPUSCULAR HGB CONC 29.5 g/dl (32.0-36.5); MEAN CORPUSCULAR VOLUME 96.3 fl (80.0-96.0); PLATELET COUNT, AUTOMATED 269 10^3/uL (150-450); RED BLOOD COUNT 4.05 10^6/uL (4.30-6.10); WHITE BLOOD COUNT 6.1 10^3/uL (4.0-10.0)
[2020-07-04 11:13] LABS: CALCIUM LEVEL 9.5 MG/DL (8.8-10.2); CREATININE FOR GFR 1.36 MG/DL (0.70-1.30); GLOMERULAR FILTRATION RATE 52.9 (>35); POTASSIUM SERUM 3.9 MEQ/L (3.5-5.1)
== END ==
LOC: SKLAB8 09:00
DX: I48.20 Chronic atrial fibrillation, unspecified (principal); I10 Essential (primary) hypertension

== ENCOUNTER → 2020-07-05 | Outpatient (REF) | payer MEDICARE | LOC: SKLAB8 10:00 | PROVIDERS: ATTEND Internal Medicine | DX: Z20.822 Contact with and (suspected) exposure to COVID-19 (principal) ==

== ENCOUNTER → 2020-07-18 | Outpatient (REF) | payer MEDICARE ==
[2020-07-18 08:15] LABS: CREATININE FOR GFR 1.46 MG/DL (0.70-1.30); GLOMERULAR FILTRATION RATE 48.7 (>35); POTASSIUM SERUM 4.4 MEQ/L (3.5-5.1)
== END ==
LOC: SKLAB8 08:00
DX: E87.0 Hyperosmolality and hypernatremia (principal)

== ENCOUNTER → 2020-07-19 | Outpatient (REF) | payer MEDICARE, OTHER, MEDICAID | LOC: SKLAB8 09:00 | PROVIDERS: ATTEND Internal Medicine | DX: Z20.822 Contact with and (suspected) exposure to COVID-19 (principal) ==

== ENCOUNTER → 2020-07-19 | Outpatient (REF) | payer MEDICARE, MEDICAID ==
[2020-07-19 07:22] LABS: BLOOD UREA NITROGEN 37 MG/DL (7-18); CALCIUM LEVEL 9.3 MG/DL (8.8-10.2); CARBON DIOXIDE LEVEL 26 MEQ/L (21-32); CHLORIDE LEVEL 122 MEQ/L (98-107); CREATININE FOR GFR 1.19 MG/DL (0.70-1.30); GLOMERULAR FILTRATION RATE > 60.0 (>35); GLUCOSE, FASTING 141 MG/DL (70-100); SODIUM LEVEL 154 MEQ/L (136-145)
== END ==
LOC: SKLAB8 08:00
DX: Z20.822 Contact with and (suspected) exposure to COVID-19 (principal); E87.0 Hyperosmolality and hypernatremia
CPT/HCPCS: 36415; 80048; U0003

== ENCOUNTER → 2020-07-21 | Outpatient (REF) | payer MEDICARE, OTHER, MEDICAID ==
[2020-07-21 14:20] LABS: CALCIUM LEVEL 9.4 MG/DL (8.8-10.2); CREATININE FOR GFR 1.29 MG/DL (0.70-1.30); GLOMERULAR FILTRATION RATE 56.2 (>35); POTASSIUM SERUM 3.9 MEQ/L (3.5-5.1)
== END ==
LOC: SKLAB8 08:00
DX: E87.0 Hyperosmolality and hypernatremia (principal)

== ENCOUNTER → 2020-07-26 | Outpatient (REF) | payer MEDICARE, OTHER, MEDICAID | LOC: SKLAB8 10:00 | PROVIDERS: ATTEND Internal Medicine | DX: Z20.822 Contact with and (suspected) exposure to COVID-19 (principal) ==